=== PATIENT | male | born 1990 | race Hispanic/Latino ===

== ENCOUNTER 2018-07-29 01:26 | Emergency (ER) | payer OTHER, SELFPAY ==
[2018-07-29] MEDS ORDERED: FLUORESCEIN SODIUM 0.6 MG/WRAP ONE ×2 (01:41→02:07)
[2018-07-29] MEDS ORDERED: TETRACAINE HCL 0.5% 2ML OPTH ONE (01:41)
--- NOTE | 2018-07-29 02:15 | ER ---
Nurse's Notes [facility] Name: Chester Beverly Age: 28 yrs Sex: Male : 1990 Arrival Date: 07/29/2018 Time: 01:26 Bed 15 Private MD: Diagnosis: Exposure to welding light (arc);Injury of conjunctiva and corneal abrasion without foreign body Presentation: 07/29 01:41 Presenting complaint: Patient states: Patient states woke up with eyes burning, states lp1 he could not see, blurred vision; States about 5 hours ago he was grinding metal, wearing "spoggles", with someone welding near by. Transition of care: patient was not received from another setting of care. Onset of symptoms was July 29, 2018 at 01:41. Risk Assessment: Do you want to hurt yourself or someone else? Patient reports no desire to harm self or others. Initial Sepsis Screen: Does the patient meet any 2 criteria? No. Patient's initial sepsis screen is negative. Does the patient have a suspected source of infection? No. Patient's initial sepsis screen is negative. Care prior to arrival: None. 01:41 Method Of Arrival: Ambulatory lp1 01:41 Acuity: ED 4 lp1 Triage Assessment: 01:43 General: Appears uncomfortable, Behavior is anxious. EENT: Eyes are tearing on right lp1 eye and left eye redness noted to bilateral eyes. 01:43 Pain: Complains of pain in right eye and left eye. lp1 Historical: - Allergies: 01:42 No Known Allergies; lp1 - Home Meds: 01:42 None [Active]; lp1 - PMHx: 01:42 None; lp1 - PSHx: 01:42 None; lp1 - Immunization history:: Adult Immunizations up to date. - Social history:: Smoking status: Patient/guardian denies using tobacco. - Ebola Screening: : No symptoms or risks identified at this time. Screenin:43 Abuse screen: Denies threats or abuse. Denies injuries from another. Nutritional lp1 screening: No deficits noted. Tuberculosis screening: No symptoms or risk factors identified. Fall Risk None identified. Assessment: 01:50 General: Appears in no apparent distress. comfortable. Pain: Complains of pain in left ao eye and right eye. Neuro: Level of Consciousness is awake, alert, obeys commands, Oriented to person, place, time, situation, Appropriate for age Moves all extremities. Full function Speech is normal, Facial symmetry appears normal. Cardiovascular: Capillary refill < 3 seconds Patient's skin is warm and dry. Respiratory: Airway is patent Respiratory effort is even, unlabored, Respiratory pattern is regular, symmetrical. GI: Abdomen is obese. : No signs and/or symptoms were reported regarding the genitourinary system. EENT: Eyes are tearing on left eye and right eye. Derm: Skin is pink, warm \\T\\ dry. normal, Skin temperature is warm. Musculoskeletal: Circulation, motion, and sensation intact. Range of motion: intact in all extremities. Vital Signs: 01:42 BP 150 / 92; Pulse 87; Resp 18; Temp 98; Pulse Ox 99% on R/A; Weight 90.72 kg; Height 5 lp1 ft. 8 in. (172.72 cm); Pain 10/10; 01:42 Body Mass Index 30.41 (90.72 kg, 172.72 cm) lp1 ED Course: 01:26 Patient arrived in ED. ds1 01:42 Triage completed. lp1 01:42 Arm band placed on. lp1 01:43 Patient has correct armband on for positive identification. lp1 01:53 Rissa Garcia FNP-C [facility]. snw 01:53 Jhony Holly MD is Attending Physician. snw 02:06 Julien Be, LEE is Primary Nurse. ao 02:14 Jacqueline Zuleta MD is Referral Physician. snw 03:04 No provider procedures requiring assistance completed. Patient did not have IV access ao during this emergency room visit. Administered Medications: 01:40 Drug: Tetracaine Drops 0.5 % 2 drops Route: Ophthalmic; Site: both eyes; lp1 02:06 Drug: Tetracaine Drops 0.5 % 1 drops Route: Ophthalmic; Site: left eye; ao 03:03 Drug: ERYTHromycin Ointment 1 application Route: Ophthalmic; Site: both eyes; ao 03:04 CANCELLED (Patient Refused): TORadol 60 mg IM once ao Outcome: 02:14 Discharge ordered by . snw 03:04 Discharged to home ambulatory. ao 03:04 Condition: stable 03:04 Discharge instructions given to patient, Instructed on discharge instructions, follow up and referral plans. Demonstrated understanding of instructions, follow-up care, medications. 03:05 Patient left the ED. ao Signatures: Rissa Garcia, BINDING CUTTER-C BINDING CUTTER-Csnw Yaneli Wheat ds1 Jena Mcfarlane, RN RN lp1 Julien Be RN RN ao
--- NOTE | 2018-07-29 02:15 | EDPHYS ---
Physician Documentation [facility] Name: Chester Beverly Age: 28 yrs Sex: Male : 1990 Arrival Date: 07/29/2018 Time: 01:26 Bed 15 Private MD: ED Physician Jhony Holly HPI: 07/29 02:18 This 28 yrs old Male presents to ER via Ambulatory with complaints of Foreign snw Body In Ear - Possible Metal. 02:18 The patient is experiencing burning, redness, tearing, The patient sustained Unknown. snw to both eyes. Onset: The symptoms/episode began/occurred yesterday. Duration: the symptoms are continuous. Associated signs and symptoms: Pertinent positives: runny nose. Patient does not utilize any form of vision correction. Severity of symptoms: At their worst the symptoms were moderate. The patient has not experienced similar symptoms in the past. It is unknown whether or not the patient has recently seen a physician. 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 Historical: - Allergies: 01:42 No Known Allergies; lp1 - Home Meds: 01:42 None [Active]; lp1 - PMHx: 01:42 None; lp1 - PSHx: 01:42 None; lp1 - Immunization history:: Adult Immunizations up to date. - Social history:: Smoking status: Patient/guardian denies using tobacco. - Ebola Screening: : No symptoms or risks identified at this time. ROS: 02:17 Constitutional: Negative for fever, chills, and weight loss, ENT: Negative for injury, snw pain, and discharge, Neck: Negative for injury, pain, and swelling, Cardiovascular: Negative for chest pain, palpitations, and edema, Respiratory: Negative for shortness of breath, cough, wheezing, and pleuritic chest pain, Abdomen/GI: Negative for abdominal pain, nausea, vomiting, diarrhea, and constipation, Back: Negative for injury and pain, : Negative for injury, bleeding, discharge, and swelling, MS/Extremity: Negative for injury and deformity, Skin: Negative for injury, rash, and discoloration, Neuro: Negative for headache, weakness, numbness, tingling, and seizure, Psych: Negative for depression, anxiety, suicide ideation, homicidal ideation, and hallucinations. 02:17 Eyes: Positive for foreign body sensation, pain, redness, tearing, of the left eye and right eye. Exam: 02:16 Constitutional: This is a well developed, well nourished patient who is awake, alert, snw and in no acute distress. Head/Face: Normocephalic, atraumatic. ENT: Nares patent. No nasal discharge, no septal abnormalities noted. Tympanic membranes are normal and external auditory canals are clear. Oropharynx with no redness, swelling, or masses, exudates, or evidence of obstruction, uvula midline. Mucous membranes moist. Neck: Trachea midline, no thyromegaly or masses palpated, and no cervical lymphadenopathy. Supple, full range of motion without nuchal rigidity, or vertebral point tenderness. No Meningismus. Chest/axilla: Normal chest wall appearance and motion. Nontender with no deformity. No lesions are appreciated. Cardiovascular: Regular rate and rhythm with a normal S1 and S2. No gallops, murmurs, or rubs. Normal PMI, no JVD. No pulse deficits. Respiratory: Lungs have equal breath sounds bilaterally, clear to auscultation and percussion. No rales, rhonchi or wheezes noted. No increased work of breathing, no retractions or nasal flaring. Abdomen/GI: Soft, non-tender, with normal bowel sounds. No distension or tympany. No guarding or rebound. No evidence of tenderness throughout. Back: No spinal tenderness. No costovertebral tenderness. Full range of motion. Skin: Warm, dry with normal turgor. Normal color with no rashes, no lesions, and no evidence of cellulitis. MS/ Extremity: Pulses equal, no cyanosis. Neurovascular intact. Full, normal range of motion. Neuro: Awake and alert, GCS 15, oriented to person, place, time, and situation. Cranial nerves II-XII grossly intact. Motor strength 5/5 in all extremities. Sensory grossly intact. Cerebellar exam normal. Normal gait. Psych: Awake, alert, with orientation to person, place and time. Behavior, mood, and affect are within normal limits. 02:16 Eyes: Periorbital structures: appear normal, Pupils: no acute changes, Extraocular movements: no acute changes, Conjunctiva: injected, bilaterally, Corneas: abrasion, that is small, bilateral eyes with dye uptake, Sclera: no appreciated abnormality, Anterior chamber: normal, Lids and lashes: appear normal. Vital Signs: 01:42 BP 150 / 92; Pulse 87; Resp 18; Temp 98; Pulse Ox 99% on R/A; Weight 90.72 kg; Height 5 lp1 ft. 8 in. (172.72 cm); Pain 10/10; 01:42 Body Mass Index 30.41 (90.72 kg, 172.72 cm) lp1 MDM: 01:54 Patient medically screened. snw 02:17 Data reviewed: vital signs, nurses notes. Data interpreted: Pulse oximetry: on room air snw is 99 %. Interpretation: normal. Counseling: I had a detailed discussion with the patient and/or guardian regarding: the historical points, exam findings, and any diagnostic results supporting the discharge/admit diagnosis, the need for outpatient follow up, to return to the emergency department if symptoms worsen or persist or if there are any questions or concerns that arise at home. Special discussion: I have referred the patient to see his PCP for further evaluation of high blood pressure. Based on the history and exam findings, there is no indication for further emergent testing or inpatient evaluation. I discussed with the patient/guardian the need to see the opthamologist for further evaluation of the symptoms, I discussed with the patient/guardian the need to see the primary care provider for further evaluation of the symptoms. 07/29 01:54 Order name: Eye Tray; Complete Time: 02:01 snw 07/29 01:54 Order name: Fluoresene Opth strip; Complete Time: 02:01 snw Administered Medications: 01:40 Drug: Tetracaine Drops 0.5 % 2 drops Route: Ophthalmic; Site: both eyes; lp1 02:06 Drug: Tetracaine Drops 0.5 % 1 drops Route: Ophthalmic; Site: left eye; ao 03:03 Drug: ERYTHromycin Ointment 1 application Route: Ophthalmic; Site: both eyes; ao 03:04 CANCELLED (Patient Refused): TORadol 60 mg IM once ao Disposition: 06:26 Co-signature as Attending Physician, Jhony Holly MD. pkl Disposition: 07/29/18 02:14 Discharged to Home. Impression: Exposure to welding light (arc), Injury of conjunctiva and corneal abrasion without foreign body. - Condition is Stable. - Discharge Instructions: Corneal Abrasion. - Prescriptions for Vigamox 0.5 % Ophthalmic Drops - instill 1 drop by OPHTHALMIC route every 8 hours for 7 days; 5 milliliter. Diclofenac Sodium 75 mg Oral Tablet Sustained Release - take 1 tablet by ORAL route 2 times per day; 30 tablet. - Work release form, Medication Reconciliation Form, Thank You Letter, Antibiotic Education, Prescription Opioid Use form. - Follow up: Jacqueline Zuleta MD; When: 1 - 2 days; Reason: Recheck today's complaints, Continuance of care. Signatures: Jhony Holly MD MD pkRissa Sorensen, ENGINEERING PRODUCTION LIAISON-C ENGINEERING PRODUCTION LIAISON-Csnw Jena Mcfarlane, RN RN lp1 Julien Be RN RN ao Corrections: (The following items were deleted from the chart) 03:04 02:45 TORadol 60 mg IM once ordered. snw ao 03:05 02:14 07/29/2018 02:14 Discharged to Home. Impression: Exposure to welding light (arc); ao Injury of conjunctiva and corneal abrasion without foreign body. Condition is Stable. Forms are Medication Reconciliation Form, Thank You Letter, Antibiotic Education, Prescription Opioid Use. Follow up: Jacqueline Zuleta; When: 1 - 2 days; Reason: Recheck today's complaints, Continuance of care. snw
[2018-07-29] MEDS ORDERED: NEO/BAC/POLY/HC OPTH OINT ONE (02:44)
== END 2018-07-29 03:05 | disposition home or self-care (01) ==
LOC: ER 01:26
DX: S05.02XA Injury of conjunctiva and corneal abrasion without foreign body, left eye, initial encounter (principal); S05.01XA Injury of conjunctiva and corneal abrasion without foreign body, right eye, initial encounter; W89.0XXA Exposure to welding light (arc), initial encounter; Y93.89 Activity, other specified; Y92.89 Other specified places as the place of occurrence of the external cause; Y99.8 Other external cause status
CPT/HCPCS: 99283